=== PATIENT | female | born 1950 | race Caucasian/White ===

== ENCOUNTER 2022-10-09 15:40 | Inpatient (IN) | payer MEDICARE, SELFPAY ==
--- NOTE | 2022-10-09 15:41 | XRR_ITS ---
PROCEDURE INFORMATION: Exam: XR Right Hip Exam date and time: 10/09/2022 4:13 PM Age: 72 years old Clinical indication: Injury or trauma; Fall; Blunt trauma (contusions or hematomas); Right; Hip; Additional info: Pain after fall TECHNIQUE: Imaging protocol: Radiologic exam of the right hip. Views: 1 view hip with pelvis when performed. COMPARISON: No relevant prior studies available. FINDINGS: Bones/joints: Angulated distal femoral neck fracture on the right. Femoral head aligned acetabulum. 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 Soft tissues: Unremarkable. XR/XR hip RT 2-3V wo/w pel* [id number] IMPRESSION: Acute right femoral neck fracture.
[2022-10-09 15:43] VITALS: BP 122/79; PULSE 109; RESP 22; TEMP 36.9; O2SAT 91
--- NOTE | 2022-10-09 15:44 | ED_ITS ---
HPI - Fall General: Chief Complaint: Extremity Injury, Lower Stated Complaint: FALL/ POSSIBLE BROKEN HIP Time Seen by Provider: 10/09/22 15:41 Source: patient Mode of arrival: EMS History of Present Illness: 72-year-old female presents emergency room via EMS complaining of fall. It is uncertain at 1 point she told me she fell today and another time she fell says she fell yesterday her clothes are clean and dry. I suspect she did fall today. She denies any loss of consciousness she is extremely agoraphobic and is highly anxious. Patient has obvious shortening and external rotation of the right leg. She fell after tingling her feet up and some animals that live in her home and stumbling complaint: fall Onset (ago): hour(s) Fall from: standing Place fall occurred: home Loss of consciousness: Unsure Prolonged down time: unclear Context: tripped/slipped Associated symptoms-after fall: Denies abdominal pain, chest pain, confusion, difficulty walking, headache(s), hematuria, lightheadedness, neck pain, numbness, short of breath, vertigo or weakness Review of Systems Const: Denies: fever(s), chills, body aches, change in appetite, fatigue or malaise ENMT: Denies: throat pain, ear or mastoid pain, nasal discharge or nasal congestion Card: Denies: chest pain or lightheadedness Resp: Denies: dyspnea, productive cough or non-productive cough GI: Denies: abdominal pain, nausea or vomiting : Denies: hematuria Musc: Denies: neck pain Skin/Breast: Denies: rash or pruritus Neuro: Denies: headache(s), difficulty walking, vertigo or confusion PFSH ED PFSH: Medical History No pertinent past medical history Surgical History No pertinent past surgical history Family History Denies family history of CAD (coronary artery disease) Social History Smoking and tobacco status: current every day smoker Alcohol intake: never Household members: significant other Physical Exam Const: GENERAL APPEARANCE: cooperative and comfortable ORIENTATION/CONSCIOUSNESS: Yes awake HENMT: COMMON NORMALS: normocephalic, atraumatic and hearing grossly normal bilaterally HEAD & SCALP: normocephalic and atraumatic Resp: COMMON NORMALS: normal respiratory effort, No retractions, No use of accessory muscles and clear to auscultation bilaterally AUSCULTATION: clear to auscultation bilaterally Cardio: COMMON NORMALS: regular rate, regular rhythm and No murmurs present (Cardio) RATE: regular rate RHYTHM: regular rhythm GI: COMMON NORMALS: Soft to palpation and No hepatosplenomegaly present AUSCULTATION: Yes normoactive bowel sounds PALPATION: Yes Soft to palpation, No Tenderness to palpation present (GI), No Guarding due to palpation present (GI) and Yes No hepatosplenomegaly present Extremity: COMMON NORMALS: normal to inspection, capillary refill normal, no clubbing, cyanosis or edema, no calf tenderness and no pedal edema Skin: COMMON NORMALS: no rashes or lesions noted GENERAL SKIN EXAM: no rashes or lesions noted Course 2 Vital Signs: Vital signs: Vital Signs Temperature 97.4 F L 10/10/22 11:19 Pulse Rate 87 10/10/22 11:19 Respiratory Rate 16 10/10/22 11:42 Blood Pressure 140/72 10/10/22 11:19 Pulse Oximetry 95 10/10/22 11:42 Oxygen Delivery Me thod 10/10/22 04:00 Oxygen Flow Rate 1 10/10/22 04:00 MDM - Fall Medical Decision Making Appear to be an intertrochanteric fracture radiology read is a femoral neck fracture is mildly displaced. Admit to hospitalist for medical work-up patient has not seen a doctor in some time discussed Dr. bradley and consultation for orthopedics. Medical Records I reviewed the patient's medical records. Lab Data I reviewed the patient's lab results. 10/10/22 06:06 10/10/22 06:06 Radiology Impressions Hip/Pelvis X-Ray 10/09/22 15:41 IMPRESSION: Acute right femoral neck fracture. Chest X-Ray 10/09/22 16:19 IMPRESSION: 1. No acute chest abnormality identified. 2. Severe emphysema. 3. Suboptimal image of the lungs. Technical limitations. Hip CT 10/10/22 06:25 IMPRESSION: 1. Comminuted impacted RIGHT femoral neck fracture which extends subtrochanteric. 2. Avulsion of the lesser and greater trochanters. Laboratory Results WBC 20.0 10^3/uL (4.0-10.0) H 10/09/22 16:37 RBC 3.22 10^6/uL (4.1-5.3) L 10/09/22 16:37 Hgb 11.4 g/dL (11.5-15.3) L 10/09/22 16:37 Hct 32.8 % (37.0-47.0) L 10/09/22 16:37 MCV 101.9 fl (81-99) H 10/09/22 16:37 MCH 35.4 pg (28.0-34.0) H 10/09/22 16:37 MCHC 34.8 g/dL (30.0-36.0) 10/09/22 16:37 RDW 14.4 % (12.1-15.1) 10/09/22 16:37 Plt Count 237 10^3/cmm (130-400) 10/09/22 16:37 MPV 9.4 fL (7.4-10.4) 10/09/22 16:37 Neut % (Auto) 88.1 % 10/09/22 16:37 Lymph % (Auto) 4.2 % 10/09/22 16:37 [place] % (Auto) 6.9 % 10/09/22 16:37 Eos % (Auto) 0.0 % 10/09/22 16:37 Baso % (Auto) 0.2 % 10/09/22 16:37 Neut # (Auto) 17.64 10^3/uL (1.8-7.7) H 10/09/22 16:37 Lymph # (Auto) 0.8 10^3/uL (0.8-4.8) 10/09/22 16:37 [place] # (Auto) 1.4 10^3/uL (0.2-0.9) H 10/09/22 16:37 Eos # (Auto) 0.0 10^3/uL (0.0-0.8) 10/09/22 16:37 Baso # (Auto) 0.0 10^3/uL (0.0-0.1) 10/09/22 16:37 Nucleated RBC % (auto) 0.1 % 10/09/22 16:37 Nucleated RBCs # 0.0 /100WBC 10/09/22 16:37 PT 13.30 SECONDS (12.1-14.9) 10/09/22 16:37 INR 0.98 (0.8-1.2) 10/09/22 16:37 APTT 23.7 SECONDS (23.9-36.7) L 10/09/22 16:37 Sodium 137 mmol/L (136-145) 10/09/22 16:37 Potassium 4.5 mmol/L (3.5-5.1) 10/09/22 16:37 Chloride 98 mmol/L (98-107) 10/09/22 16:37 Carbon Dioxide 19 mmol/L (22-29) L 10/09/22 16:37 Anion Gap 24.5 (5-19) H 10/09/22 16:37 BUN 34 mg/dL (8-23) H 10/09/22 16:37 Creatinine 1.0 mg/dL (0.5-0.9) H 10/09/22 16:37 GFR Calculation 54.8 mL/min (90-130) L 10/09/22 16:37 Glucose 155 mg/dL (65-115) H 10/09/22 16:37 Calculated Osmolality 295 mOsm/kg (285-295) 10/09/22 16:37 Lactic Acid 1.8 mmol/L (0.5-2.2) 10/09/22 17:45 Calcium 8.7 mg/dL (8.5-10.5) 10/09/22 16:37 Total Bilirubin 1.3 mg/dL (0.15-1.2) H 10/09/22 16:37 AST 37 U/L (0-32) H 10/09/22 16:37 ALT 15 U/L (0-33) 10/09/22 16:37 Alkaline Phosphatase 116 U/L (35-105) H 10/09/22 16:37 Creatine Kinase 982 U/L (26-192) H* 10/09/22 16:37 Total Protein 7.2 g/dL (6.6-8.7) 10/09/22 16:37 Albumin 4.0 g/dL (3.5-5.2) 10/09/22 16:37 Globulin 3.2 g/dL (1.3-4.6) 10/09/22 16:37 Procalcitonin 0.23 ng/mL (0-0.5) 10/09/22 17:45 Urine Color Yellow (Yellow) 10/09/22 17:11 Urine Appearance Clear (CLEAR) 10/09/22 17:11 Urine pH 5 (5-7) 10/09/22 17:11 Ur Specific Roy 1.020 (1.005-1.030) 10/09/22 17:11 Urine Protein Trace (Negative) 10/09/22 17:11 Urine Glucose (UA) Norm (Normal) 10/09/22 17:11 Urine Ketones 1+ (Negative) H 10/09/22 17:11 Urine Blood Neg (Negative) 10/09/22 17:11 Urine Nitrate Negative (Negative) 10/09/22 17:11 Urine Bilirubin Neg (Negative) 10/09/22 17:11 Urine Urobilinogen Neg mg/dL (Negative) 10/09/22 17:11 Ur Leukocyte Esterase Negative (Negative) 10/09/22 17:11 Urine RBC None /hpf (0-2) 10/09/22 17:11 Urine WBC None /hpf (0-5) 10/09/22 17:11 Ur Squamous Epith Cells None /hpf (0-5) 10/09/22 17:11 Amorphous Sediment Not Reportable 10/09/22 17:11 Urine Bacteria Trace /hpf (NONE) 10/09/22 17:11 Discharge Plan Discharge Patient Disposition: Admitted As Inpatient Admit Provider: Rachelle Jordan Clinical Impression: Hip fracture, Anxiety, Leukocytosis, Intravascular volume depletion Condition: Stable Coding Level of Care Code ED Formula Room Worker for Emre Ham
--- NOTE | 2022-10-09 16:19 | XRR_ITS ---
PROCEDURE INFORMATION: Exam: XR Chest Exam date and time: 10/09/2022 4:22 PM Age: 72 years old Clinical indication: Injury or trauma; Fall; Blunt trauma (contusions or hematomas); Additional info: Dyspnea/cough TECHNIQUE: Imaging protocol: Radiologic exam of the chest. Views: 1 view. COMPARISON: No relevant prior studies available. FINDINGS: Lungs: Severe emphysema. Hyperinflation. No consolidation. Portions of the lungs are nondiagnostic in evaluation, distorted by artifact from overexposure of the film. Pleural spaces: Unremarkable. No pleural effusion. No pneumothorax. Heart/Mediastinum: Unremarkable. No cardiomegaly. Bones/joints: Unremarkable. XR/XR chest 1V portable [id number] IMPRESSION: 1. No acute chest abnormality identified. 2. Severe emphysema. 3. Suboptimal image of the lungs. Technical limitations.
--- NOTE | 2022-10-09 16:19 | ECG_ITS ---
[facility] Test Date: 2022-10-09 Pat Name: Lily Davies Department: Room: Gender: Female Junior Systems Engineer: : 1950 Requested By: Daron Mckeon Order Number: [id number] Reading MD: MARIA EUGENIA CASTILLO Measurements Intervals Bynum Rate: 101 P: 80 WA: 116 QRS: 83 QRSD: 81 T: 74 QT: 344 QTc: 447 Interpretive Statements SINUS TACHYCARDIA WITH SHORT WA INTERVAL POSSIBLE LEFT ATRIAL ENLARGEMENT [-0.1mV P-WAVE IN V1/V2] POSSIBLE RIGHT VENTRICULAR CONDUCTION DELAY [RSR (QR) IN V1/V2] NONSPECIFIC ST & T-WAVE ABNORMALITY ABNORMAL RHYTHM ECG No previous ECG available for comparison Electronically Signed On 10-11-2022 23:39:17 CDT by MARIA EUGENIA CASTILLO [email or web address]
[2022-10-09] MEDS: ondansetron 2 mg/ML SDV 2 mL 4 MG IVP (16:42)
[2022-10-09] MEDS: morphine 4 mg/mL SDV 1 mL IVP (16:42)
[2022-10-09 16:45] LABS: Basophils % 0.2 %; Hematocrit 32.8 % (37.0-47.0); Hemoglobin 11.4 g/dL (11.5-15.3); Lymphocytes # 0.8 10^3/uL (0.8-4.8); Lymphocytes % 4.2 %; Mean Corpuscular HGB Conc 34.8 g/dL (30.0-36.0); Mean Corpuscular Hemoglobin 35.4 pg (28.0-34.0); Mean Corpuscular Volume 101.9 fl (81-99); Mean Platelet Volume 9.4 fL (7.4-10.4); Monocytes # 1.4 10^3/uL (0.2-0.9); Monocytes % 6.9 %; Neutrophils # 17.64 10^3/uL (1.8-7.7); Neutrophils % 88.1 %; Nucleated Red Blood Cells % 0.1 %; Platelet Count 237 10^3/cmm (130-400); Red Blood Count 3.22 10^6/uL (4.1-5.3); Red Cell Distribution Width 14.4 % (12.1-15.1)
[2022-10-09 17:12] LABS: INR 0.98 (0.8-1.2); Partial Thromboplastin Time 23.7 SECONDS (23.9-36.7)
[2022-10-09 17:13] LABS: Alanine Aminotransferase 15 U/L (0-33); Alkaline Phosphatase 116 U/L (35-105); Anion Gap 24.5 (5-19); Aspartate Amino Transferase 37 U/L (0-32); Blood Urea Nitrogen 34 mg/dL (8-23); Calcium 8.7 mg/dL (8.5-10.5); Carbon Dioxide 19 mmol/L (22-29); Chloride 98 mmol/L (98-107); Globulin 3.2 g/dL (1.3-4.6); Glomerular Filtration Rate 54.8 mL/min (90-130); Glucose 155 mg/dL (65-115); Osmolality Calculated 295 mOsm/kg (285-295); Potassium 4.5 mmol/L (3.5-5.1); Sodium 137 mmol/L (136-145); Total Bilirubin 1.3 mg/dL (0.15-1.2); Total Protein 7.2 g/dL (6.6-8.7)
[2022-10-09 17:16] LABS: Creatine Phosphokinase 982 U/L (26-192)
[2022-10-09] MEDS: pantoprazole 40 mg SDV IVP (18:23)
[2022-10-09] MEDS: heparin 5,000 unit/mL INJ 1 mL 5000 UNIT SUBCUT (18:23)
[2022-10-09 18:25] LABS: Lactic Sepsis W/Reflex 1.8 mmol/L (0.5-2.2)
[2022-10-09 18:35] LABS: Procalcitonin 0.23 ng/mL (0-0.5)
[2022-10-09 18:42] VITALS: BP 135/75; PULSE 78; RESP 18; O2SAT 93
--- NOTE | 2022-10-09 18:50 | P.HP_ITS ---
Providers/Chief Complaint Admitting Physician: Rachelle Jordan MD Chief Complaint: FALL/ POSSIBLE BROKEN HIP History of Present Illness Lily Davies is a 72 year old female who sustained a fall when she tripped over over her cats and dogs at home. She is denying chest pain, syncope, seizure- like activity. She is denying any past medical history of surgical significant history. Her only medications are anxiolytics. In the ER she has been diagnosed with right hip fracture Abnormal bilirubin noted She smokes 1 pack/week Clinically looks dehydrated Very anxious Significant leukocytosis I will request UA, Hinson catheter has been placed Procalcitonin unremarkable She is afebrile Review of Systems Const: Reports: fatigue; Denies: fever(s) Eyes: Denies: change in vision ENMT: Denies: throat pain Card: Denies: chest pain Resp: Denies: dyspnea GI: Denies: abdominal pain : Denies: flank pain Musc: Reports: extremity pain; Denies: neck pain Skin/Breast: Denies: rash Neuro: Denies: headache(s) Psych: Reports: anxiety Endo: Denies: polyuria Miquel/Lymph: Denies: easy bruising All/Imm: Denies: urticaria Medications/Allergies Home Medications Medication Instructions Recorded Confirmed Last Taken Type naproxen 500 mg tablet 500 mg PO DAILY PRN Pain 10/09/22 10/09/22 Unknown History sulindac 200 mg tablet 100 mg PO BID 10/09/22 10/09/22 Unknown History zolpidem 10 mg tablet (Ambien) 5 mg PO BEDTIME 10/09/22 10/09/22 Unknown History Allergies Allergy/AdvReac Type Severity Reaction Status Date / Time Unable to Assess Allergy Unverified 10/09/22 17:25 PFSH Acute PFSH: Medical History (Updated 10/09/22 @ 18:52 by Bulmaro Levi MD) No pertinent past medical history Surgical History (Updated 10/09/22 @ 18:52 by Bulmaro Levi MD) No pertinent past surgical history Family History (Updated 10/09/22 @ 18:53 by Bulmaro Levi MD) Denies family history of CAD (coronary artery disease) Social History (Updated 10/09/22 @ 18:53 by Bulmaro Levi MD) Smoking and tobacco status: current every day smoker Alcohol intake: never Household members: significant other Vitals/I&O/Wt Last Vital Signs Temp 98.4 F 10/09/22 15:43 Pulse 78 10/09/22 18:42 Resp 18 10/09/22 18:42 BP 135/75 10/09/22 18:42 Pulse Ox 93 10/09/22 18:42 O2 Del Method 10/09/22 18:42 Physical Exam Narrative: Patient is very anxious Laying supine Complaining of leg pain Euvolemic dehydrated Currently on room air Anxious appearing Hypertensive Doing well on room air no active chest pain or shortness of breath Hinson catheter in place Urinary Catheter Management: Hinson: Cath Placed During This Visit: yes Urinary Catheter Date of Insertion: 10/09/22 Urinary Catheter Time of Insertion: : Data 10/09/22 16:37 10/09/22 16:37 Micro: Microbiology 10/09/22 17:45 Blood Culture - Preliminary Blood SPECIMEN COLLECTED 10/09/22 17:40 Blood Culture - Preliminary Blood SPECIMEN COLLECTED A&P Assessment and plan (1) Anxiety: (2) Hip fracture: Plan Mechanical fall Right hip fracture Risk for avascular necrosis Dr. Caldwell consulted N.p.o. Hold DVT anticoagulating agent prophylaxis for today until surgical intervention Then she will need Lovenox Clinically looks dehydrated Continue IV fluids Lives with her significant other at home Full code DVT prophylaxis: SCDs Currently doing well on room air Will need physical therapy that we will decide her disposition Home versus SNF Very anxious appearing With using dilators along morphine Significant leukocytosis no active signs of infection we will request UA, chest x-ray unremarkable could be leukemoid reaction to stress Attestations Medical Necessity Statement*: Continue medical management anticipating more than 2 midnights Diagnoses Anxiety F41.9 Hip fracture S72.009A
[2022-10-09 19:00] VITALS: BP 152/96; PULSE 126; O2SAT 96
[2022-10-09 19:38] LABS: Add Urine Microscopic? YES; Bilirubin Urine Neg (Negative); Blood Urine Neg (Negative); Glucose Urine UA Norm (Normal); Ketones Urine 1+ (Negative); Leukocyte Esterase Urine Negative (Negative); Nitrate Urine Negative (Negative); Protein Urine Trace (Negative); Urine Appearance Clear (CLEAR); Urine Color Yellow (Yellow); Urobilinogen Urine Neg (Negative); pH Urine 5 (5-7)
[2022-10-09 19:39] LABS: Add Urine Culture? No; Bacteria Urine TRACE /hpf
--- NOTE | 2022-10-09 19:44 | PC.NURSE ---
Report handoff given to me by SHIRA Cortez.
[2022-10-09 20:00] VITALS: BP 96/56; PULSE 106; RESP 31; TEMP 36.8; O2SAT 91
[2022-10-09 21:30] VITALS: O2SAT 96
[2022-10-09] MEDS: sodium chloride 0.9% 1,000 ML 75 ML IV (22:46)
[2022-10-09] MEDS: zolpidem 5 mg Tablet PO (22:46)
[2022-10-09] MEDS: acetaminophen 325 mg Tablet 650 MG PO (23:50)
[2022-10-09] MEDS: lidocaine 5% Patch 1 PATCH TOPICAL (23:52)
[2022-10-10] VITALS (17 sets, daily range): BP systolic 103–141; BP diastolic 50–85; PULSE 77–96; RESP 14–18; TEMP 36.1–37.3; O2SAT 91–99
--- NOTE | 2022-10-10 | XR_ITS ---
WS: [id number] XR hip RT 1V wo/w pel [id number] REASON FOR EXAM: OR PICS FINDINGS: Short intramedullary chris and large femoral nail fixation of intertrochanteric fracture with significa nt displacement of the lesser trochanter. Fracture fragments and surgical appliances are in proper position and alignment. XR/XR hip RT 2-3V wo/w pel* [id number] IMPRESSION: Fracture with fixation without abnormality.
[2022-10-10] MEDS: HYDROcodone-acetaminophen 5-325 mg Tablet 1 TAB PO ×3 (01:33→21:14)
[2022-10-10 06:24] LABS: Basophils # 0.1 10^3/uL (0.0-0.1); Basophils % 0.3 %; Eosinophils % 0.1 %; Hematocrit 34.6 % (37.0-47.0); Hemoglobin 11.3 g/dL (11.5-15.3); Lymphocytes # 1.8 10^3/uL (0.8-4.8); Lymphocytes % 9.7 %; Mean Corpuscular HGB Conc 32.7 g/dL (30.0-36.0); Mean Corpuscular Hemoglobin 34.3 pg (28.0-34.0); Mean Corpuscular Volume 105.2 fl (81-99); Mean Platelet Volume 9.9 fL (7.4-10.4); Monocytes # 1.7 10^3/uL (0.2-0.9); Monocytes % 8.9 %; Neutrophils # 14.96 10^3/uL (1.8-7.7); Neutrophils % 80.5 %; Nucleated Red Blood Cells % 0 %; Platelet Count 244 10^3/cmm (130-400); Red Blood Count 3.29 10^6/uL (4.1-5.3); Red Cell Distribution Width 14.7 % (12.1-15.1); White Blood Count 18.6 10^3/uL (4.0-10.0)
--- NOTE | 2022-10-10 06:25 | CT_ITS ---
WS: [id number] CT RIGHT HIP, NONCONTRAST, 3-D. HISTORY: Fractured right hip Technique: All CT scans at [facility] use at least one of these dose optimization techniques: automated exposure control; mA and/or kV adjustment per patient size (includes targeted exams where dose is matched to clinical indication); or iterative reconstruction. DLP: 251.85 mGy.cm COMPARISON: 10/09/2022 Acute comminuted, impacted fracture involving the RIGHT femoral neck. Foreshortening and superior imp action of the distal fragment. There are multiple osseous fragments. Avulsion of the lesser and great er trochanters. Fracture line extends subtrochanteric. Moderate osteophytic ridging around the humeral head. No displacement from the hip joint. No symphysi s pubis fracture. Moderate soft tissue edema surrounding the RIGHT hip fracture. CT/CT hip RT wo con* [id number] IMPRESSION: 1. Comminuted impacted RIGHT femoral neck fracture which extends subtrochanter ic. 2. Avulsion of the lesser and greater trochanters.
--- NOTE | 2022-10-10 06:27 | P.CONIM_ITS ---
Providers/Reason For Consult Consulting Physician/Specialty*: Orthopedics Reason for Consult*: Right hip pain Attending Physician: Jevon Burgess MD History of Present Illness History of Present Illness Lily Davies is a 72 year old female who sustained a fall on 10/09/2022. She states she tripped over her pets causing her to fall felt immediate pain in the right hip. She presented [facility] where x-rays confirmed a right hip fractu re she was then admitted for more definitive management. Orthopedics was consulted she was evaluated in room 266 bed 1 with no family present continuing to complain of right hip pain. Patient has been confused through the night. She denies any neck or back pain reports all right hip pain. Any movement of the right leg causes her pain to be much greater. She ranks it as 8 out of 10 on the pain scale with movement. Rest gives her some temporary relief but was reporting muscle spasms. Reports sharp stabbing pain localized to the right hip with movement. She reports a nicotine history with smoking occasionally for a number of years. Reports alcohol use socially. Denies any loss of conscious in the fall. Reports that the only surgery she has had is cosmetic with breast augmentation. An extensive review of the patient's past medical history, surgical history, allergies, medications, family history, social history, and review of systems was completed Review of Systems Const: Reports: fatigue; Denies: fever(s) Eyes: Denies: change in vision ENMT: Denies: throat pain Card: Denies: chest pain Resp: Denies: dyspnea GI: Denies: abdominal pain : Denies: flank pain Musc: Reports: extremity pain; Denies: neck pain Skin/Breast: Denies: rash Neuro: Denies: headache(s) Psych: Reports: anxiety Endo: Denies: polyuria Miquel/Lymph: Denies: easy bruising All/Imm: Denies: urticaria Medications/Allergies Home Medications Medication Instructions Recorded Confirmed Last Taken Type naproxen 500 mg tablet 500 mg PO DAILY PRN Pain 10/09/22 10/09/22 Unknown History sulindac 200 mg tablet 100 mg PO BID 10/09/22 10/09/22 Unknown History zolpidem 10 mg tablet (Ambien) 5 mg PO BEDTIME 10/09/22 10/09/22 Unknown History Allergies Allergy/AdvReac Type Severity Reaction Status Date / Time Unable to Assess Allergy Unverified 10/09/22 17:25 Current Medications Generic Name Dose Route Start Last Admin Trade Name Freq PRN Reason Stop Dose Admin Acetaminophen 650 mg 10/09/22 16:46 10/09/22 23:50 Acetaminophen 325 Mg Tablet PO 650 mg Q6H PRN Administration Mild/Mod Pain Or Temp >/= 101 Hydrocodone Bitart/Acetaminophen 1 tab 10/10/22 01:11 10/10/22 01:33 Hydrocodone-Acetaminophen 5-325 Mg Tablet PO 1 tab Q6H PRN Administration MODERATE PAIN Heparin Sodium (Porcine) 5,000 unit 10/09/22 17:00 10/09/22 18:23 Heparin 5,000 Unit/Ml Inj 1 Ml SUBCUT 5,000 unit Q12H ISHAN Administration Sodium Chloride 1,000 mls @ 75 mls/hr 10/09/22 17:00 10/09/22 22:46 Sodium Chloride 0.9% IV 75 mls/hr .[id number] ISHAN Administration Lidocaine 1 patch 10/09/22 23:45 10/09/22 23:52 Lidocaine 5% Patch TOPICAL 1 patch [id number] ISHAN Administration Pantoprazole Sodium 40 mg 10/09/22 17:00 10/09/22 18:23 Pantoprazole 40 Mg Sdv IVP 40 mg Q24H ISHAN Administration Zolpidem Tartrate 5 mg 10/09/22 21:06 10/09/22 22:46 Zolpidem 5 Mg Tablet PO 5 mg BEDTIME ISHAN Administration PFSH Acute PFSH: Medical History (Updated 10/09/22 @ 18:52 by Bulmaro Levi MD) No pertinent past medical history Surgical History (Updated 10/09/22 @ 18:52 by Bulmaro Levi MD) No pertinent past surgical history Family History (Updated 10/09/22 @ 18:53 by Bulmaro Levi MD) Denies family history of CAD (coronary artery disease) Social History (Updated 10/09/22 @ 18:53 by Bulmaro Levi MD) Smoking and tobacco status: current every day smoker Alcohol intake: never Household members: significant other Vitals/I&O/Wt Last Vital Signs Temp 99.2 F 10/10/22 04:00 Pulse 83 10/10/22 05:38 Resp 14 10/10/22 04:00 BP 116/67 10/10/22 04:00 Pulse Ox 92 10/10/22 04:00 O2 Del Method 10/10/22 04:00 O2 Flow Rate 1 10/10/22 04:00 10/09/22 10/09/22 10/10/22 14:59 22:59 06:59 Intake Total 480 / 480 Output Total 400 / 400 Balance 80 / 80 Weight last 48 hrs Weight 96 lb Physical Exam Narrative: Patient is alert moderate acute distress with right hip pain. Any movement of the right lower extremity causes increased leg pain. She has palpable pain over the right hip. She has positive logroll on the right negative on the left. Skin is clear warm femoral good cap refill she wiggles all digits they are warm to the touch. Calves are supple dorsalis pedis and posterior tibial pulses are weak but palpable. She has no palpable pain in either knee tibial or ankle regions. She has no palpable pain in the lumbar thoracic or cervical spine full range of motion of both upper extremities at the shoulders elbows and wrist. Hands warm good cap refill radial pulses are palpable. HENMT: COMMON NORMALS: normocephalic and atraumatic HEAD & SCALP: normocephalic and atraumatic Resp: COMMON NORMALS: normal respiratory effort Cardio: COMMON NORMALS: regular rate and regular rhythm RATE: regular rate RHYTHM: regular rhythm GI: COMMON NORMALS: Soft to palpation and non-tender PALPATION: Yes Soft to palpation : COMMON NORMALS: Yes no CVA tenderness BLADDER/KIDNEY EXAM: Yes no CVA tenderness Back/Pelvis: COMMON NORMALS: no CVA tenderness Psych: COMMON NORMALS: mental status grossly normal and cooperative Urinary Catheter Management: Hinson: Cath Placed During This Visit: yes Reason for Continuing Indwelling Catheter: Perioperative Use in Selected Surgeries Urinary Catheter Date of Insertion: 10/09/22 Urinary Catheter Time of Insertion: :23 Data 10/09/22 16:37 10/09/22 16:37 Micro: Microbiology 10/09/22 17:45 Blood Culture - Preliminary Blood SPECIMEN COLLECTED 10/09/22 17:40 Blood Culture - Preliminary Blood SPECIMEN COLLECTED A&P Assessment and plan (1) Hip fracture: After reviewing the radiographs difficult to discern the type of hip fracture recommend a CT scan of the right hip. Keep her n.p.o. for probable ORIF today. Following the CT scan we will discuss more with the patient the nature of her fracture and recommended fixation. Patient understands. Discussed this at length with Dr. Fabian agrees above-stated plan. More than 50% of the time spent with the patient today involved coordination of care, counseling and discussion of conservative versus surgical treatment options. Total amount of time spent with the patient was 31 minutes. (2) Anxiety: Coding Level of Care Code Acute Code for [facility] Diagnoses Hip fracture S72.009A Anxiety F41.9 Time Spent (min) 31
[2022-10-10 06:49] LABS: Alanine Aminotransferase 17 U/L (0-33); Alkaline Phosphatase 93 U/L (35-105); Anion Gap 24.6 (5-19); Aspartate Amino Transferase 46 U/L (0-32); Blood Urea Nitrogen 46 mg/dL (8-23); Calcium 8.8 mg/dL (8.5-10.5); Carbon Dioxide 21 mmol/L (22-29); Chloride 101 mmol/L (98-107); Globulin 3.7 g/dL (1.3-4.6); Glomerular Filtration Rate 31.9 mL/min (90-130); Glucose 127 mg/dL (65-115); Magnesium 1.8 mg/dL (1.7-2.3); Osmolality Calculated 307 mOsm/kg (285-295); Potassium 4.6 mmol/L (3.5-5.1); Sodium 142 mmol/L (136-145); Total Bilirubin 0.8 mg/dL (0.15-1.2); Total Protein 7.7 g/dL (6.6-8.7)
[2022-10-10] MEDS: sodium chloride 0.9% 1,000 ML 30 ML IV (11:41)
[2022-10-10] MEDS: HYDROmorphone 1 mg/mL INJ 1 mL 0.5 MG IVP (11:42)
--- NOTE | 2022-10-10 11:50 | P.PN_ITS ---
Subjective Subjective: missed patient this AM. brought down to surgery Jacob pt after surgery. tolerated well. per note had Right hip nail for IT fracture. States her hip is feeling better. anxious because of all the noise. looking for her iphone, wanting vasasline for lips Vitals/I&O/Wt Last Vital Signs Temp 97.4 F L 10/10/22 11:19 Pulse 87 10/10/22 11:19 Resp 16 10/10/22 11:42 BP 140/72 10/10/22 11:19 Pulse Ox 95 10/10/22 11:42 O2 Del Method 10/10/22 04:00 O2 Flow Rate 1 10/10/22 04:00 10/09/22 10/10/22 10/10/22 22:59 06:59 14:59 Intake Total 480 / 480 Output Total 400 / 400 Balance 80 / 80 Weight last 48 hrs Weight 96 lb Physical Exam Narrative: General: AOx3, anxious, very thin and frail psych: appropriate mood and affect. Head: atraumatic, normocephalic, no mass/lesions Eyes: conjunctiva clear w/o exudate or hemorrhage. non-icteric, EOM intact, PERRLA. no signs of nystagmus Nose: nasal mucosa pink, septum midline Oropharynx: poor dentition, pink moist mucosa, non-deviated tongue, no buccal nodules/lesions. no pharyngeal exudate Neck: FROM, no lymphadenopathy, no tracheal deviation, non tender, thyroid gland normal w/o mass. supple Chest: atraumatic, symmetrical CVD: RRR, normal S1 and S2, no M/R/G. 2+ pulse x 4 extremities, no JVD, no carotid bruit. Lungs: clear lung sounds in all zamora, no rhonchi, wheezing, rales. Abdomen: NT, ND, soft, NABS. No hepatosplenomegaly, no mass. umbilicus midline w/o herniation : chaudhry in place Rectal: not done on todays examination Spine: no visible deformities, FROM, 5/5 strength, ttp lumbar spine (chronic) Extremities: FROM and 5/5 strength in BUE and LLE. -R hip: limited ROM, bandage clean and w/o bleeding. -RLE: able to wiggle toes and move foot. NVI Neuro: CNII-XII grossly intact. No atrophy, weakness, tremors or clonus.? 2+ DTR, no sensory abnormalities. Skin:? no rash, vesicles, lesions. Urinary Catheter Management: Chaudhry: Cath Placed During This Visit: no Data 10/10/22 06:06 10/10/22 06:06 Micro: Microbiology 10/09/22 17:45 Blood Culture - Preliminary Blood SPECIMEN COLLECTED 10/09/22 17:40 Blood Culture - Preliminary Blood SPECIMEN COLLECTED Other data: Lily Davies is a 72 year old female who sustained a fall when she tripped over over her cats and dogs at home.? She is denying chest pain, syncope, seizure-l micheal activity.? She is denying any past medical history of surgical significant history.? Her only medications are anxiolytics. In the ER she has been diagnosed with right hip fracture Abnormal bilirubin noted She smokes 1 pack/week Clinically looks dehydrated Very anxious Significant leukocytosis I will request UA, Chaudhry catheter has been placed Procalcitonin unremarkable She is afebrile A&P Assessment and plan (1) Hip fracture: fracture s/p mechainical fall seen by Ortho and had surgery this afternoon by Dr. Caldwell. Right hip nail for IT fracture advance diet as tolerated. NPO SCD's, post op will need lovenox will need post op PT (2) Anxiety: haldol PRN likely needs to be started (3) Intravascular volume depletion: STOP fluids, had on IV 75cc/hr prior to surgery tolerating PO will advance diet (4) Leukocytosis: Significant leukocytosis no active signs of infection we will request UA, chest x-ray unremarkable could be leukemoid reaction to stress Plan Full code Attestations Medical Necessity Statement*: s/p hip fracture with surgical correction Coding Level of Care Code 83811 Diagnoses Hip fracture S72.009A Anxiety F41.9 Intravascular volume depletion E86.1 Leukocytosis D72.829
--- NOTE | 2022-10-10 12:26 | W.PM.OPSUD ---
Surgery/Procedure H&P Update DATE OF PROCEDURE: October 10, 2022 DATE H&P PERFORMED: 10/10/22 H&P UPDATE INFORMATION: I have reviewed H&P completed within last 30 days, I have examined patient prior to procedure and No changes to prior documentation PLANNED PROCEDURE: Operation Date: 10/10/22 12:35 Proposed Procedures p Trochanteric Femoral Nail(Right) - Emiliano Caldwell DO
--- NOTE | 2022-10-10 12:52 | P.ANESASSM_ITS ---
Pre-Anesthetic Assessment Height/Weight: Weight 43.545 kg Temp Pulse Resp BP Pulse Ox O2 Del Method O2 Flow Rate 97.4 F L 87 16 140/72 95 1 10/10/22 11:19 10/10/22 11:19 10/10/22 11:42 10/10/22 11:19 10/10/22 11:42 10/10/22 04:00 10/10/22 04:00 Operation Date: 10/10/22 12:35 Proposed Procedures p Trochanteric Femoral Nail(Right) - Emiliano H Paulette, DO Familial anesthetic complications: none Was Beta Analia taken within 24 hours: N/A Was Clonidine taken within 24 hours: N/A Social Tobacco and No alcohol Exam alert, oriented x 3 and regular rate & rhythm Airway Submandibular: within normal limits Cervical ROM: within normal limits Mallampati: Class II Dentition: chipped Pulmonary Chronic Obstructive Pulmonary Disease [facility] [place] Neuropsych Anxiety and Depression Anesthetic Plan ASA status: 2 Anesthesia: General Medications/Allergies Home Medications Medication Instructions Recorded Confirmed Last Taken Type naproxen 500 mg tablet 500 mg PO DAILY PRN Pain 10/09/22 10/09/22 Unknown History sulindac 200 mg tablet 100 mg PO BID 10/09/22 10/09/22 Unknown History zolpidem 10 mg tablet (Ambien) 5 mg PO BEDTIME 10/09/22 10/09/22 Unknown History Allergies Allergy/AdvReac Type Severity Reaction Status Date / Time No Known Allergies Allergy Verified 10/10/22 11:26 Current Medications Generic Name Dose Route Start Last Admin Trade Name Freq PRN Reason Stop Dose Admin Acetaminophen 650 mg 10/09/22 16:46 10/09/22 23:50 Acetaminophen 325 Mg Tablet PO 650 mg Q6H PRN Administration Mild/Mod Pain Or Temp >/= 101 Hydrocodone Bitart/Acetaminophen 1 tab 10/10/22 01:11 10/10/22 08:49 Hydrocodone-Acetaminophen 5-325 Mg Tablet PO 1 tab Q6H PRN Administration MODERATE PAIN Heparin Sodium (Porcine) 5,000 unit 10/09/22 17:00 10/09/22 18:23 Heparin 5,000 Unit/Ml Inj 1 Ml SUBCUT 5,000 unit Q12H ISHAN Administration Hydromorphone HCl 0.5 mg 10/10/22 11:29 10/10/22 11:42 Hydromorphone 1 Mg/Ml Inj 1 Ml IVP 0.5 mg ONCE PRN Administration For preop pain/anxiety Sodium Chloride 1,000 mls @ 75 mls/hr 10/09/22 17:00 10/09/22 22:46 Sodium Chloride 0.9% IV 75 mls/hr .[id number] ISHAN Administration Sodium Chloride 1,000 mls @ 30 mls/hr 10/10/22 11:15 10/10/22 11:41 Sodium Chloride 0.9% IV 10/11/22 11:14 30 mls/hr .Q24H ISHAN Administration Lidocaine 1 patch 10/09/22 23:45 10/09/22 23:52 Lidocaine 5% Patch TOPICAL 1 patch [id number] ISHAN Administration Pantoprazole Sodium 40 mg 10/09/22 17:00 10/09/22 18:23 Pantoprazole 40 Mg Sdv IVP 40 mg Q24H ISHAN Administration Zolpidem Tartrate 5 mg 10/09/22 21:06 10/09/22 22:46 Zolpidem 5 Mg Tablet PO 5 mg BEDTIME ISHAN Administration PFSH Anesthesia Medical History (Updated 10/10/22 @ 11:55 by Jevon Burgess MD) No pertinent past medical history Surgical History (Updated 10/09/22 @ 18:52 by Bulmaro Levi MD) No pertinent past surgical history Family History (Updated 10/09/22 @ 18:53 by Bulmaro Levi MD) Denies family history of CAD (coronary artery disease) Social History (Updated 10/09/22 @ 18:53 by Bulmaro Levi MD) Smoking and tobacco status: current every day smoker Alcohol intake: never Household members: significant other Data Anesthesia 10/10/22 06:06 10/10/22 06:06 Short CBC 10/09/22 10/10/22 Range/Units 16:37 06:06 WBC 20.0 H 18.6 H (4.0-10.0) 10^3/uL Hgb 11.4 L 11.3 L (11.5-15.3) g/dL Hct 32.8 L 34.6 L (37.0-47.0) % MCV 101.9 H 105.2 H (81-99) fl Plt Count 237 244 (130-400) 10^3/cmm Neut % (Auto) 88.1 80.5 % Neut # (Auto) 17.64 H 14.96 H (1.8-7.7) 10^3/uL BMP 10/09/22 10/10/22 16:37 06:06 Sodium 137 142 Potassium 4.5 4.6 Chloride 98 101 Carbon Dioxide 19 L 21 L BUN 34 H 46 H Creatinine 1.0 H 1.6 H Glucose 155 H 127 H Calcium 8.7 8.8 Cardiac Enzymes 10/09/22 Range/Units 16:37 Creatine Kinase 982 H* (26-192) U/L Liver Function 10/09/22 10/10/22 Range/Units 16:37 06:06 Total Bilirubin 1.3 H 0.8 (0.15-1.2) mg/dL AST 37 H 46 H (0-32) U/L ALT 15 17 (0-33) U/L Alkaline Phosphatase 116 H 93 (35-105) U/L Albumin 4.0 4.0 (3.5-5.2) g/dL Urine 10/09/22 Range/Units 17:11 Urine Color Yellow (Yellow) Urine Appearance Clear (CLEAR) Urine pH 5 (5-7) Ur Specific [place] 1.020 (1.005-1.030) Urine Protein Trace (Negative) Urine Glucose (UA) Norm (Normal) Urine Ketones 1+ H (Negative) Urine Nitrate Negative (Negative) Urine Bilirubin Neg (Negative) Ur Leukocyte Esterase Negative (Negative) Urine RBC None (0-2) /hpf Urine WBC None (0-5) /hpf Coags 10/09/22 16:37 PT 13.30 INR 0.98 APTT 23.7 L Microbiology 10/09/22 17:45 Blood Culture - Preliminary Blood SPECIMEN COLLECTED 10/09/22 17:40 Blood Culture - Preliminary Blood SPECIMEN COLLECTED Cardiac Studies: No Data to Display
[2022-10-10] MEDS: ceFAZolin 2,000 MG in sodium chloride 0.9% (plus) 50 ML 100 MG IV (12:59)
--- NOTE | 2022-10-10 13:48 | XR_ITS ---
WS: [id number] XR hip RT 1V wo/w pel [id number] REASON FOR EXAM: OR PICS FINDINGS: Short intramedullary chris and large femoral nail fixation of intertrochanteric fracture with significa nt displacement of the lesser trochanter. Fracture fragments and surgical appliances are in proper position and alignment.
--- NOTE | 2022-10-10 13:55 | P.OP_ITS ---
Operative Report Date of procedure: October 10, 2022 Pre-op diagnosis: right intertrochanteric hip fracture Post-op diagnosis: same Procedure done: 1. Right hip nail for IT fracture Surgeon: Emiliano Caldwell [employer]: Alexandru Gaffney Estimated blood loss (mL): 50 Procedure: 1. Right hip nail for IT fracture Patient brought the op suite after undergoing anesthesia was placed on the Varnell table. The right hip is locked in to the boot traction was applied internal rotation was applied and under C-arm guidance fracture was reduced once fracture was reduced and locked into position and then patient was prepped and draped normal sterile fashion. Skin incision was made at the top of the greater trochanter. The starting pin was inserted then a drill was used to open up the top of the femoral canal. Romel gamma nail was then inserted into the medullary canal through the tip of the greater trochanter. Next a pin was placed from the lateral side of the hip up into the center center position of the femoral head. This was confirmed on AP and lateral fluoroscopy. Then the hip was drilled 95 mm lag screw was placed and then the fracture was compressed. And then locked in position with the set screw and then had a half of back turn. Next the locking screw was placed through the nail. And then the attachment jig was removed and AP and lateral fluoroscopy ensure that the hardware and fracture were in good position. The hip nail looked to be in good position wounds were irrigated closed with Vicryl and brielle. Sterile dressings were applied patient was transferred to the PACU in stable condition.
--- NOTE | 2022-10-10 14:43 | ANE.PACU2 ---
Inpatient post-anesthesia follow up: Airway intact: Yes Vital signs: Temperature 97 F Pulse Rate 96 Respiratory Rate 18 Blood Pressure 141/85 Pulse Oximetry 97 Oxygen Delivery Me thod Room Air Oxygen Flow Rate 1 Fraction of Inspir ed Oxygen Hydration adequate: Yes Nausea and vomiting: No Pain level: 3 Mental status: Baseline
[2022-10-10] MEDS: ceFAZolin 1,000 MG in sodium chloride 0.9% (plus) 50 ML 100 MG IV ×2 (15:13→21:15)
[2022-10-10] MEDS: sodium chloride 0.9% 1,000 ML 75 ML IV (15:14)
--- NOTE | 2022-10-10 15:48 | PC.OT ---
OT Eval Held - Patient just released from surgery, eval held until tomorrow when patient is more appropriate.
[2022-10-10] MEDS: ALPRAZolam 0.5 mg Tablet 1 MG PO ×2 (16:19→21:19)
[2022-10-10] MEDS: morphine 4 mg/mL SDV 1 mL 2 MG IVP (16:20)
[2022-10-10] MEDS: pantoprazole 40 mg SDV IVP (18:48)
[2022-10-10] MEDS: enoxaparin 40 mg/0.4 mL Syringe SUBCUT (18:48)
[2022-10-10] MEDS: zolpidem 5 mg Tablet PO (21:14)
[2022-10-11] VITALS (9 sets, daily range): BP systolic 93–120; BP diastolic 57–72; PULSE 77–99; RESP 15–20; TEMP 36.1–36.6; O2SAT 88–97
[2022-10-11 04:25] LABS: Basophils % 0.1 %; Hematocrit 28.2 % (37.0-47.0); Hemoglobin 8.7 g/dL (11.5-15.3); Lymphocytes # 0.9 10^3/uL (0.8-4.8); Lymphocytes % 5.9 %; Mean Corpuscular HGB Conc 30.9 g/dL (30.0-36.0); Mean Corpuscular Hemoglobin 34.7 pg (28.0-34.0); Mean Corpuscular Volume 112.4 fl (81-99); Mean Platelet Volume 10.2 fL (7.4-10.4); Monocytes # 1.6 10^3/uL (0.2-0.9); Monocytes % 10.6 %; Neutrophils # 12.15 10^3/uL (1.8-7.7); Neutrophils % 82.5 %; Nucleated Red Blood Cells % 0 %; Platelet Count 187 10^3/cmm (130-400); Red Blood Count 2.51 10^6/uL (4.1-5.3); Red Cell Distribution Width 14.9 % (12.1-15.1); White Blood Count 14.7 10^3/uL (4.0-10.0)
[2022-10-11 04:48] LABS: Alanine Aminotransferase 12 U/L (0-33); Albumin Level 3.3 g/dL (3.5-5.2); Alkaline Phosphatase 71 U/L (35-105); Blood Urea Nitrogen 47 mg/dL (8-23); Carbon Dioxide 20 mmol/L (22-29); Chloride 103 mmol/L (98-107); Globulin 2.9 g/dL (1.3-4.6); Glomerular Filtration Rate 49.1 mL/min (90-130); Glucose 191 mg/dL (65-115); Osmolality Calculated 297 mOsm/kg (285-295); Sodium 135 mmol/L (136-145); Total Bilirubin 0.2 mg/dL (0.15-1.2); Total Protein 6.2 g/dL (6.6-8.7)
[2022-10-11 04:49] LABS: Anion Gap 16.8 (5-19); Aspartate Amino Transferase 36 U/L (0-32); Potassium 4.8 mmol/L (3.5-5.1)
[2022-10-11] MEDS: ceFAZolin 1,000 MG in sodium chloride 0.9% (plus) 50 ML 100 MG IV (05:47)
--- NOTE | 2022-10-11 07:55 | PM.PN ---
Subjective Subjective: POD1 Patient somnolent in no apparent distress. Follows commands. Vitals/I&O/Wt Last Vital Signs Temp 97.2 F L 10/11/22 04:00 Pulse 77 10/11/22 07:35 Resp 17 10/11/22 04:00 BP 96/58 10/11/22 04:00 Pulse Ox 88 L 10/11/22 04:00 O2 Del Method 10/11/22 04:00 O2 Flow Rate 1 10/10/22 20:00 10/10/22 10/11/22 10/11/22 22:59 06:59 14:59 Intake Total 990.75 / 1990.75 540 / 2530.75 Output Total 400 / 750 100 / 850 Balance 590.75 / 1240.75 440 / 1680.75 Weight last 48 hrs Weight 96 lb Physical Exam Narrative: Patient is alert, somnolent. Left Hip incision is healing nicely. There is no signs of erythema or drainage no signs of infection. Good motor strength throughout both lower extremities. Fires in all motor groups. Skin is clear warm, feet are warm with good cap refill in all digits. Normal sensation to light touch. Calves are supple, no medial thigh tenderness, negative Homans' sign. No palpable edema peripherally. Urinary Catheter Management: Hinson: Cath Placed During This Visit: yes Reason for Continuing Indwelling Catheter: Perioperative Use in Selected Surgeries Urinary Catheter Date of Insertion: 10/09/22 Urinary Catheter Time of Insertion: 17:23 Data 10/11/22 03:33 10/11/22 03:33 Micro: Microbiology 10/09/22 17:40 Blood Culture - Preliminary Blood NEGATIVE TO DATE 10/09/22 17:45 Blood Culture - Preliminary Blood NEGATIVE TO DATE A&P Assessment and plan (1) Intertrochanteric fracture of left hip: Patient resting comfortably. Physical therapy to work with mobilization. Continue incentive spirometer for pulmonary toilet. Defer to medical team for medical management. Attestations Medical Necessity Statement*: Defer to medical team Coding Level of Care Code Acute Code for [facility] Diagnoses Intertrochanteric fracture of left hip S72.142A
[2022-10-11] MEDS: lidocaine 5% Patch 1 PATCH TOPICAL ×2 (08:46→20:46)
[2022-10-11] MEDS: HYDROcodone-acetaminophen 5-325 mg Tablet 1 TAB PO ×2 (08:47→20:42)
[2022-10-11] MEDS: lanolin oint 7 gm 1 APPLIC TOPICAL (09:32)
--- NOTE | 2022-10-11 11:48 | P.PN_ITS ---
Subjective Subjective: POD1 Pt seen this AM Initially appeared lethargic; however after a couple minutes she woke up. Stated medication was somewhat helpful for calming her nerves. Worked with PT this AM, stated it went very well but now is in discomfort. Overnight pt required haldol IM for agitation and some visual hallucinations. pt states she remembers last evening and was confusing a dream with reality. knows her cats where not in the room and are not currently in the room . Continues to have significant anxiety and a poor living situation. Denies wanting treatment for her TIMA. Medications: Reviewed: Yes Vitals/I&O/Wt Last Vital Signs Temp 97.5 F L 10/11/22 08:00 Pulse 85 10/11/22 08:00 Resp 18 10/11/22 08:00 BP 102/65 10/11/22 08:00 Pulse Ox 97 10/11/22 08:00 O2 Del Method 10/11/22 08:00 O2 Flow Rate 1 10/10/22 20:00 10/10/22 10/11/22 10/11/22 22:59 06:59 14:59 Intake Total 990.75 / 1990.75 540 / 2530.75 120 / 120 Output Total 400 / 750 100 / 850 Balance 590.75 / 1240.75 440 / 1680.75 120 / 120 Weight last 48 hrs Weight 96 lb Physical Exam Narrative: General: AOx3, anxious, very thin and frail psych: appropriate mood and affect. anxious Head: atraumatic, normocephalic, no mass/lesions Eyes: conjunctiva clear w/o exudate or hemorrhage. non-icteric, EOM intact, PERRLA. no signs of nystagmus Oropharynx: poor dentition, pink moist mucosa, Neck: FROM, no lymphadenopathy, no tracheal deviation, non tender, thyroid gland normal w/o mass. supple Chest: atraumatic, symmetrical CVD: RRR, normal S1 and S2, no M/R/G. 2+ pulse x 4 extremities, no JVD, no carotid bruit. Lungs: clear lung sounds in all zamora, no rhonchi, wheezing, rales. Abdomen: NT, ND, soft, NABS. No hepatosplenomegaly, no mass. umbilicus midline w/o herniation : chaudhry in place Rectal: not done on todays examination Spine: no visible deformities, FROM, 5/5 strength, ttp lumbar spine (chronic) Extremities: FROM and 5/5 strength in BUE and LLE. -R hip: limited ROM, bandage clean and w/o bleeding. -RLE: able to wiggle toes and move foot. NVI Neuro: CNII-XII grossly intact. No atrophy, weakness, tremors or clonus.? 2+ DTR, no sensory abnormalities. Skin:? no rash, vesicles, lesions. Urinary Catheter Management: Chaudhry: Cath Placed During This Visit: yes Reason for Continuing Indwelling Catheter: Perioperative Use in Selected Surgeries Urinary Catheter Date of Insertion: 10/09/22 Urinary Catheter Time of Insertion: 17:23 Data 10/11/22 03:33 10/11/22 03:33 Micro: Microbiology 10/09/22 17:40 Blood Culture - Preliminary Blood NEGATIVE TO DATE 10/09/22 17:45 Blood Culture - Preliminary Blood NEGATIVE TO DATE A&P Assessment and plan (1) Hip fracture: fracture s/p mechainical fall POD 1 R I fracture requiring nail. seen by Ortho HADOOP APPLICATION DEVELOPER this AM to start PT today for mobilization continue incentive spirometer lovenox (2) Anxiety: haldol PRN Hx of undiagnosed TIMA. does not wish for medical management at this time. will re-eval in AM Psych consulted (3) Intravascular volume depletion: tolerating diet contine PO fluids (4) Leukocytosis: improvement today (5) Macrocytic anemia: 11.3 to 8.7 this AM will monitor hgb likely post operative bleeding in hip Plan concern for underlying TIMA. Psychosis unlikely given discussion and Hx. Will need SNF and physical therapy not ready for home psych consult for psychosis Full code Attestations Medical Necessity Statement*: will require hospitalization for hip fracture post-op care and SNF placement Coding Level of Care Code 33370 Diagnoses Hip fracture S72.009A Anxiety F41.9 Intravascular volume depletion E86.1 Leukocytosis D72.829 Macrocytic anemia D53.9
[2022-10-11] MEDS: pantoprazole 40 mg SDV IVP (17:39)
[2022-10-11] MEDS: enoxaparin 40 mg/0.4 mL Syringe SUBCUT (17:39)
[2022-10-11] MEDS: zolpidem 5 mg Tablet PO (20:42)
--- NOTE | 2022-10-11 22:15 | W.PM.PSYCONS ---
Providers/Reason for Consult Consulting Physican/Specialty*: Robinson Valenzuela MD/Psychiatry Reason for Consult*: anxiety Attending Physician: Jevon Burgess MD Psych Consult HPI History of Present Illness Lily Davies is a 72 year old female admitted after a right hip fracture from an accident. Patient had reported that she has had a history panic attacks with Associated chest pain shortness of breath and feelings as if she were going to . She reports that she has chronic problems with controlling her worry. She reports at times having crippling anxiety that has been worse over the past few years. She reports sometimes being unable to control her worry and reports having difficulties with falling asleep. She reports at times having muscle tension and states that she can often struggle with sugar lying down at night. She reports some difficulty with concentration. She reports no psychotic symptoms. She reports no past history or current history of depression. She denies having any thoughts of hurting herself or others. She reports adequate energy and reports no change in motivation. She had reported desire to treat her anxiety with natural remedies. She had acknowledged having extreme anxiety prior to being placed under Anesthesia and stated that she was hearing voices shortly after receiving anesthesia but reports no after effects today. Psychiatric history: She has no inpatient or outpatient psychiatric treatment. She is not receiving psychotherapy in the past either. Medical history/surgical history :see below-hip surgery, macrocytic anemia Current psychiatric medications: ambien 5mg at night Family psychiatric hx: none Legal hx: none hx: none Social history: Patient reports that she lives with her partner in [facility] on [address] acres. 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 She reports that she chronically and [facility] and was raised by her biological parents. She reports having 1 sibling. She reports having graduated high school and did not attend college. 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 She reports that her son was killed in [place] in 2021 and she reports increased anxiety since that time. She denies any drug or alcohol use. She reports 2 previous marriages and states that she is currently . Meds Home Medications and Allergies Home Medications Medication Instructions Recorded Confirmed Last Taken Type naproxen 500 mg tablet 500 mg PO DAILY PRN Pain 10/09/22 10/09/22 Unknown History sulindac 200 mg tablet 100 mg PO BID 10/09/22 10/09/22 Unknown History zolpidem 10 mg tablet (Ambien) 5 mg PO BEDTIME 10/09/22 10/09/22 Unknown History Allergies Allergy/AdvReac Type Severity Reaction Status Date / Time No Known Allergies Allergy Verified 10/10/22 11:26 Current Medications Current Medications Generic Name Dose Route Start Last Admin Trade Name Freq PRN Reason Stop Dose Admin Acetaminophen 650 mg 10/09/22 16:46 10/09/22 23:50 Acetaminophen 325 Mg Tablet PO 650 mg Q6H PRN Administration Mild/Mod Pain Or Temp >/= 101 Hydrocodone Bitart/Acetaminophen 1 tab 10/10/22 01:11 10/11/22 20:42 Hydrocodone-Acetaminophen 5-325 Mg Tablet PO 1 tab Q6H PRN Administration MODERATE PAIN Enoxaparin Sodium 40 mg 10/10/22 18:00 10/11/22 17:39 Enoxaparin 40 Mg/0.4 Ml Syringe SUBCUT 40 mg Q24H ISHAN Administration Lanolin 1 applic 10/11/22 08:41 10/11/22 09:32 Lanolin Oint 7 Gm TOPICAL 1 applic PRN PRN Administration DRYNESS Lidocaine 1 patch 10/09/22 23:45 10/11/22 20:46 Lidocaine 5% Patch TOPICAL 1 patch [id number] ISHAN Administration Morphine Sulfate 2 mg 10/09/22 21:06 10/10/22 16:20 Morphine 4 Mg/Ml Sdv 1 Ml IVP 2 mg Q4H PRN Administration SEVERE PAIN Pantoprazole Sodium 40 mg 10/09/22 17:00 10/11/22 17:39 Pantoprazole 40 Mg Sdv IVP 40 mg Q24H ISHAN Administration Zolpidem Tartrate 5 mg 10/09/22 21:06 10/11/22 20:42 Zolpidem 5 Mg Tablet PO 5 mg BEDTIME ISHAN Administration PFSH NPU PFSH: Medical History No pertinent past medical history Surgical History No pertinent past surgical history Family History Denies family history of CAD (coronary artery disease) Social History Smoking and tobacco status: current every day smoker Alcohol intake: never Household members: significant other Mental Status Exam MSE Comments: Lily is an anxious white female who appeared her stated age. There was no evidence of any abnormal involuntary motor movements tics or tremors appreciated. She was somewhat talkative and open on interview. She appeared anxious but overall in no immediate distress. Her mood was described as okay. Her affect appeared anxious. Her thought process was linear logical and goal-directed. Her thought content showed no evidence of active homicidal or suicidal ideation. There was no clear evidence of delusional thinking. She not appear to be responding to internal stimuli. Attention and concentration appeared adequate. Her insight and judgment appeared fair. Her impulse control appeared fair as well. Vitals/I&O/Wt Last Vital Signs Temp 97.8 F 10/11/22 20:00 Pulse 91 10/11/22 20:00 Resp 17 10/11/22 20:00 BP 120/65 10/11/22 20:00 Pulse Ox 92 10/11/22 20:00 O2 Del Method 10/11/22 19:26 O2 Flow Rate 1 10/10/22 20:00 10/11/22 10/11/22 10/11/22 06:59 14:59 22:59 Intake Total 540 / 2530.75 600 / 600 240 / 840 Output Total 100 / 850 Balance 440 / 1680.75 600 / 600 240 / 840 Weight last 48 hrs Weight 43.545 kg Physical Exam Urinary Catheter Management: Hinson: Cath Placed During This Visit: yes Reason for Continuing Indwelling Catheter: Perioperative Use in Selected Surgeries Urinary Catheter Date of Insertion: 10/09/22 Urinary Catheter Time of Insertion: : Data NPU 10/11/22 03:33 10/11/22 03:33 Micro: Microbiology 10/09/22 17:40 Blood Culture - Preliminary Blood NEGATIVE TO DATE 10/09/22 17:45 Blood Culture - Preliminary Blood NEGATIVE TO DATE Microbiology 10/09/22 17:40 Blood Blood Culture - Preliminary NEGATIVE TO DATE 10/09/22 17:45 Blood Blood Culture - Preliminary NEGATIVE TO DATE A&P Assessment and plan (1) Generalized anxiety disorder: Plan This is a white female with generalized anxiety disorder who appears to be managing her anxiety well enough status post surgery to repair her hip fracture. She is requesting any medications this if necessary at this time. Patient had requested any further follow-up for generalized anxiety disorder and did not feel that psychotherapy was necessary nor was medications. Attestations NPU Medical Necessity Statement*: contact if needed for further follow up. Coding Level of Care Code Acute Code for [facility] Diagnoses Generalized anxiety disorder F41.1
[2022-10-12] VITALS (8 sets, daily range): BP systolic 109–145; BP diastolic 68–84; PULSE 88–97; RESP 17–86; TEMP 36.5–36.8; O2SAT 90–96
[2022-10-12] MEDS: HYDROcodone-acetaminophen 5-325 mg Tablet 1 TAB PO ×3 (02:46→17:45)
[2022-10-12 03:32] LABS: Basophils % 0.2 %; Eosinophils # 0.1 10^3/uL (0.0-0.8); Eosinophils % 0.8 %; Hematocrit 28.3 % (37.0-47.0); Hemoglobin 9.2 g/dL (11.5-15.3); Lymphocytes # 2.9 10^3/uL (0.8-4.8); Lymphocytes % 21.6 %; Mean Corpuscular HGB Conc 32.5 g/dL (30.0-36.0); Mean Corpuscular Hemoglobin 33.9 pg (28.0-34.0); Mean Corpuscular Volume 104.4 fl (81-99); Mean Platelet Volume 10.3 fL (7.4-10.4); Monocytes # 1.4 10^3/uL (0.2-0.9); Monocytes % 10.5 %; Neutrophils # 8.87 10^3/uL (1.8-7.7); Neutrophils % 66.5 %; Nucleated Red Blood Cells % 0 %; Platelet Count 228 10^3/cmm (130-400); Red Blood Count 2.71 10^6/uL (4.1-5.3); Red Cell Distribution Width 14.7 % (12.1-15.1); White Blood Count 13.4 10^3/uL (4.0-10.0)
[2022-10-12 03:59] LABS: Alanine Aminotransferase 13 U/L (0-33); Albumin Level 3.5 g/dL (3.5-5.2); Alkaline Phosphatase 66 U/L (35-105); Anion Gap 10.7 (5-19); Aspartate Amino Transferase 38 U/L (0-32); Blood Urea Nitrogen 35 mg/dL (8-23); Calcium 8.4 mg/dL (8.5-10.5); Carbon Dioxide 28 mmol/L (22-29); Chloride 106 mmol/L (98-107); Globulin 2.9 g/dL (1.3-4.6); Glomerular Filtration Rate 70.9 mL/min (90-130); Glucose 130 mg/dL (65-115); Osmolality Calculated 302 mOsm/kg (285-295); Potassium 3.7 mmol/L (3.5-5.1); Sodium 141 mmol/L (136-145); Total Bilirubin 0.5 mg/dL (0.15-1.2); Total Protein 6.4 g/dL (6.6-8.7)
--- NOTE | 2022-10-12 08:34 | PM.PN ---
Subjective Subjective: POD 2 Patient more alert sitting up in bed following commands. Reports mild right hip pain. Denies any chest pain, shortness of breath, headaches. Vitals/I&O/Wt Last Vital Signs Temp 97.9 F 10/12/22 07:48 Pulse 93 10/12/22 07:48 Resp 18 10/12/22 07:48 BP 122/71 10/12/22 07:48 Pulse Ox 90 10/12/22 07:48 O2 Del Method 10/12/22 07:48 O2 Flow Rate 2 10/12/22 07:48 10/11/22 10/12/22 10/12/22 22:59 06:59 14:59 Intake Total 240 / 840 Output Total 650 / 650 Balance 240 / 840 -650 / 190 Physical Exam Narrative: Patient is alert and orient x3 has good general appearance normal normal affect. Right hip incision is clean and dry. There is no signs of erythema or drainage no signs of infection. Good motor strength throughout both lower extremities. Fires in all motor groups. Skin is clear warm, feet are warm with good cap refill in all digits. Normal sensation to light touch. Calves are supple, no medial thigh tenderness, negative Homans' sign. No palpable edema peripherally. Urinary Catheter Management: Hinson: Cath Placed During This Visit: yes Reason for Continuing Indwelling Catheter: Acute Urinary Retention or Obstruction Urinary Catheter Date of Insertion: 10/09/22 Urinary Catheter Time of Insertion: 17:23 Data 10/12/22 02:45 10/12/22 02:45 A&P Assessment and plan (1) Intertrochanteric fracture of left hip: Physical therapy to work with mobilization. Encouraged incentive spirometry for pulmonary toilet. Lovenox for anticoagulation as well as S CDs. Dressing changed today with Silverlon. Discontinue Hinosn catheter. Defer to medical team for medical management. (2) Generalized anxiety disorder: Attestations Medical Necessity Statement*: Defer to medical team Coding Level of Care Code Acute Code for g Fwd Diagnoses Intertrochanteric fracture of left hip S72.142A Generalized anxiety disorder F41.1
[2022-10-12] MEDS: lidocaine 5% Patch 1 PATCH TOPICAL ×2 (09:17→21:23)
--- NOTE | 2022-10-12 11:01 | P.PN_ITS ---
Subjective Subjective: POD 2 Pt alert, sitting in bed. States she is in discomfort after PT this AM. feeling overall improved. Less anxious during encounter this morning. appears to be getting more comfortable in the hospital setting. After lengthy discussion pt agreable to starting SSRI to help with MDD and Anxiety. Denies any chest pain, shortness of breath, headaches. Medications: Reviewed: Yes Vitals/I&O/Wt Last Vital Signs Temp 97.9 F 10/12/22 07:48 Pulse 93 10/12/22 07:48 Resp 18 10/12/22 07:48 BP 122/71 10/12/22 07:48 Pulse Ox 90 10/12/22 07:48 O2 Del Method 10/12/22 07:48 O2 Flow Rate 2 10/12/22 08:00 10/11/22 10/12/22 10/12/22 22:59 06:59 14:59 Intake Total 240 / 840 0 / 0 Output Total 650 / 650 Balance 240 / 840 -650 / 190 0 / 0 Physical Exam Narrative: General: AOx3, anxious, very thin and frail psych: appropriate mood and affect. anxious Head: atraumatic, normocephalic, no mass/lesions Eyes: conjunctiva clear w/o exudate or hemorrhage. non-icteric, EOM intact, PERRLA. no signs of nystagmus Oropharynx: poor dentition, pink moist mucosa, Neck: FROM, no lymphadenopathy, no tracheal deviation, non tender, thyroid gland normal w/o mass. supple Chest: atraumatic, symmetrical CVD: RRR, normal S1 and S2, no M/R/G. 2+ pulse x 4 extremities, no JVD, no carotid bruit. Lungs: clear lung sounds in all zamora, no rhonchi, wheezing, rales. Abdomen: NT, ND, soft, NABS. No hepatosplenomegaly, no mass. umbilicus midline w/o herniation : chaudhry in place Rectal: not done on todays examination Spine: no visible deformities, FROM, 5/5 strength, ttp lumbar spine (chronic) Extremities: FROM and 5/5 strength in BUE and LLE. -R hip: limited ROM, bandage clean and w/o bleeding. -RLE: able to wiggle toes and move foot. NVI Neuro: CNII-XII grossly intact. No atrophy, weakness, tremors or clonus.? 2+ DTR, no sensory abnormalities. Skin:? no rash, vesicles, lesions. Urinary Catheter Management: Chaudhry: Cath Placed During This Visit: yes Reason for Continuing Indwelling Catheter: Acute Urinary Retention or O bstruction Urinary Catheter Date of Insertion: 10/09/22 Urinary Catheter Time of Insertion: 17:23 Data 10/12/22 02:45 10/12/22 02:45 A&P Assessment and plan (1) Hip fracture: fracture s/p mechainical fall POD 1 R I fracture requiring nail. seen by Ortho [employer] this AM. improved mobilization encourage incentive spirometry to start PT today for mobilization continue incentive spirometer lovenox and SCD's discontinue chaudhry cath (2) Anxiety: Hx of undiagnosed TIMA. pt now agreeable to starting medication Will start Lexapro 10mg qd to help with anxiety and some MDD (3) Intravascular volume depletion: tolerating diet contine PO fluids, BP improving (4) Leukocytosis: improvement today (5) Macrocytic anemia: improving this morning from 8.7 to 9.2 will monitor hgb likely post operative bleeding in hip Plan concern for underlying TIMA and MDD. will start Lexapro with understanding that patient must establish with a PCP upon discharge Will need SNF and physical therapy not ready for home psych consult for psychosis Full code Attestations Medical Necessity Statement*: requires hospitalization for post op care and SNF Coding Level of Care Code 75123 Diagnoses Hip fracture S72.009A Anxiety F41.9 Intravascular volume depletion E86.1 Leukocytosis D72.829 Macrocytic anemia D53.9
[2022-10-12] MEDS: escitalopram 10 mg Tablet PO (13:00)
--- NOTE | 2022-10-12 13:48 | PC.SOCIAL ---
Pg 2 IMM Explained to pt Pg 2 IMM. No questions voiced. Provided pt a copy. Initialed, dated, & timed a copy & placed in chart.
[2022-10-12] MEDS: enoxaparin 40 mg/0.4 mL Syringe SUBCUT (17:18)
[2022-10-12] MEDS: pantoprazole 40 mg SDV IVP (17:18)
[2022-10-12] MEDS: zolpidem 5 mg Tablet PO (21:23)
[2022-10-13] MEDS: HYDROcodone-acetaminophen 5-325 mg Tablet 1 TAB PO ×5 (00:14→23:45)
[2022-10-13 03:54] VITALS: BP 142/85; PULSE 84; RESP 26; TEMP 36.8; O2SAT 98
[2022-10-13 05:36] LABS: Basophils # 0.1 10^3/uL (0.0-0.1); Basophils % 0.5 %; Eosinophils # 0.2 10^3/uL (0.0-0.8); Eosinophils % 1.7 %; Hematocrit 26.7 % (37.0-47.0); Hemoglobin 8.9 g/dL (11.5-15.3); Lymphocytes # 2.4 10^3/uL (0.8-4.8); Lymphocytes % 24.8 %; Mean Corpuscular HGB Conc 33.3 g/dL (30.0-36.0); Mean Corpuscular Volume 105.1 fl (81-99); Mean Platelet Volume 9.7 fL (7.4-10.4); Monocytes # 1.4 10^3/uL (0.2-0.9); Monocytes % 14.1 %; Neutrophils # 5.63 10^3/uL (1.8-7.7); Neutrophils % 58.4 %; Nucleated Red Blood Cells % 0 %; Platelet Count 259 10^3/cmm (130-400); Red Blood Count 2.54 10^6/uL (4.1-5.3); Red Cell Distribution Width 14.8 % (12.1-15.1); White Blood Count 9.6 10^3/uL (4.0-10.0)
[2022-10-13 05:54] LABS: Alanine Aminotransferase 10 U/L (0-33); Albumin Level 3.3 g/dL (3.5-5.2); Alkaline Phosphatase 63 U/L (35-105); Anion Gap 9.1 (5-19); Aspartate Amino Transferase 26 U/L (0-32); Blood Urea Nitrogen 21 mg/dL (8-23); Calcium 8.2 mg/dL (8.5-10.5); Carbon Dioxide 32 mmol/L (22-29); Chloride 105 mmol/L (98-107); Globulin 2.7 g/dL (1.3-4.6); Glucose 123 mg/dL (65-115); Osmolality Calculated 298 mOsm/kg (285-295); Potassium 4.1 mmol/L (3.5-5.1); Sodium 142 mmol/L (136-145); Total Bilirubin 0.7 mg/dL (0.15-1.2)
[2022-10-13 08:00] VITALS: BP 113/75; PULSE 86; RESP 16; RESP 18; TEMP 36.5; O2SAT 92; O2SAT 96
[2022-10-13] MEDS: escitalopram 10 mg Tablet PO (09:43)
[2022-10-13] MEDS: lidocaine 5% Patch 1 PATCH TOPICAL ×2 (09:43→20:20)
[2022-10-13 12:00] VITALS: BP 105/64; PULSE 87; RESP 18; TEMP 36.6; O2SAT 92
[2022-10-13 16:00] VITALS: BP 154/87; PULSE 92; RESP 18; TEMP 36.6; O2SAT 92
--- NOTE | 2022-10-13 17:06 | PM.PN ---
Subjective Subjective: Pain is better controlled today. Patient is doing well on as needed hydrocodone and toradol. Worked with PT Medications: Reviewed: Yes Vitals/I&O/Wt Last Vital Signs Temp 97.9 F 10/13/22 16:00 Pulse 92 10/13/22 16:00 Resp 18 10/13/22 16:00 BP 154/87 10/13/22 16:00 Pulse Ox 92 10/13/22 16:00 O2 Del Method 10/13/22 16:00 O2 Flow Rate 1 10/13/22 08:00 10/13/22 10/13/22 10/13/22 06:59 14:59 22:59 Intake Total 100 / 700 480 / 480 Balance 100 / 50 480 / 480 Physical Exam Narrative: General: No acute distress, AO x3 HEENT: PERRLA, pupils bilaterally equal and reactive, pallors not present Chest: Normal vesicular breath sounds, no added sounds, equal good air entry bilaterally CVS: S1-S2 regular, no murmurs, no tachycardia, no gallops, no rubs Abdomen: Soft, nontender, no organomegaly, bowel sounds present Neuro: No focal deficits, no facial deformity, AO x3, power 5/5 in all limbs Urinary Catheter Management: Hinson: Cath Placed During This Visit: yes, but has since been removed by the nurse Reason for Continuing Indwelling Catheter: Decision to DC Catheter Urinary Catheter Date of Insertion: 10/09/22 Urinary Catheter Time of Insertion: 17:23 Date Urinary Catheter Removed: 10/12/22 Time Urinary Catheter Discontinued: 12:10 Data 10/13/22 05:13 10/13/22 05:13 A&P Assessment and plan (1) Hip fracture: fracture s/p mechainical fall POD 1 R I fracture requiring nail. encourage incentive spirometry continue PT today for mobilization continue incentive spirometer lovenox and SCD's (2) Anxiety: Hx of undiagnosed TIAM. started on Lexapro 10mg qd to help with anxiety and some MDD doing better (3) Intravascular volume depletion: tolerating diet contine PO fluids, BP improving (4) Leukocytosis: improvement today (5) Macrocytic anemia: stable Plan Dispo: approptiate dispo planning ongoing, will likely benefit from ongoing skilled therapy Full code Attestations Medical Necessity Statement*: approprtiate disposition planning Coding Level of Care Code Acute Code for Chg Fwd Diagnoses Hip fracture S72.009A Anxiety F41.9 Intravascular volume depletion E86.1 Leukocytosis D72.829 Macrocytic anemia D53.9
[2022-10-13] MEDS: pantoprazole 40 mg SDV IVP (17:42)
[2022-10-13 20:00] VITALS: BP 154/77; PULSE 87; RESP 17; TEMP 36.9; O2SAT 93
[2022-10-13] MEDS: zolpidem 5 mg Tablet PO (20:19)
[2022-10-13 23:37] VITALS: BP 177/69; PULSE 117; RESP 18; TEMP 36.6; O2SAT 91
[2022-10-14 00:20] VITALS: BP 151/90; PULSE 92; RESP 17; O2SAT 92
[2022-10-14 03:46] VITALS: BP 151/89; PULSE 90; RESP 16; TEMP 36.8; O2SAT 93
--- NOTE | 2022-10-14 04:35 | PC.NURSE ---
during rounding pt has had eyes closed, no s/s of distress, on occasion pt wakes up when chaudhry bag is being emptied, pt then c/o severe pain rating pain at 4, pain meds given.
[2022-10-14] MEDS: HYDROcodone-acetaminophen 5-325 mg Tablet 1 TAB PO ×2 (06:29→14:54)
[2022-10-14 08:00] VITALS: BP 150/82; PULSE 90; RESP 15; TEMP 36.8; O2SAT 93
[2022-10-14] MEDS: escitalopram 10 mg Tablet PO (08:08)
[2022-10-14] MEDS: lidocaine 5% Patch 1 PATCH TOPICAL (08:08)
[2022-10-14 11:58] VITALS: BP 149/88; PULSE 93; TEMP 36.7; O2SAT 94
--- NOTE | 2022-10-14 13:30 | P.DS_ITS ---
Discharge Providers Date of Admission: 10/09/22 18:23 Date of Discharge: October 15, 2022 Attending Provider at Admission: Rachelle Jordan MD Attending Provider at Discharge: Honey Yanes MD Diagnoses at Discharge Discharge Diagnosis (1) Hip fracture: Status: Acute (2) Anxiety: Status: Acute (3) Intravascular volume depletion: Status: Acute (4) Leukocytosis: Status: Acute (5) Macrocytic anemia: Status: Acute Reason for Visit Reason for Visit: FALL/ POSSIBLE BROKEN HIP Hospital Course Hospital Course Lily Davies is a 72 year old female who sustained a fall when she tripped over over her cats and dogs at home.? She is denying chest pain, syncope, seizure- like activity.she has been diagnosed with right hip fracture. She underwent Right hip nail for IT fracture. Post op course was notable for significant anxiety for which patient has been started on Lexapro in addition to her home anxiolytics. She worked with PT. Pain is adequately controlled on prn opaites. She is being discharged to continue skilled therapy at SNF. She is currently stable. Physical Exam Narrative: General: No acute distress, AO x3 HEENT: PERRLA, pupils bilaterally equal and reactive, pallors not present Chest: Normal vesicular breath sounds, no added sounds, equal good air entry bilaterally CVS: S1-S2 regular, no murmurs, no tachycardia, no gallops, no rubs Abdomen: Soft, nontender, no organomegaly, bowel sounds present Neuro: No focal deficits, no facial deformity, AO x3, power 5/5 in all limbs Urinary Catheter Management: Hinson: Cath Placed During This Visit: yes, but has since been removed by the nurse Reason for Continuing Indwelling Catheter: Decision to DC Catheter Urinary Catheter Date of Insertion: 10/09/22 Urinary Catheter Time of Insertion: 17: Date Urinary Catheter Removed: 10/12/22 Time Urinary Catheter Discontinued: 12:10 Discharge Data Studies Completed and Pending Completed Studies During Hospitalization Category Date Time Status CT hip RT wo con* [id number] Urgent Cat Scan 10/10/22 06:25 Completed XR chest 1V portable [id number] Stat Exams 10/09/22 16:19 Completed XR hip RT 2-3V wo/w pel* [id number] Routine Exams 10/10/22 Completed XR hip RT 2-3V wo/w pel* [id number] Stat Exams 10/09/22 15:41 Completed Radiology Impressions Chest X-Ray 10/09/22 16:19 IMPRESSION: 1. No acute chest abnormality identified. 2. Severe emphysema. 3. Suboptimal image of the lungs. Technical limitations. Hip/Pelvis X-Ray 10/10/22 00:00 IMPRESSION: Fracture with fixation without abnormality. Hip CT 10/10/22 06:25 IMPRESSION: 1. Comminuted impacted RIGHT femoral neck fracture which extends subtrochanteric. 2. Avulsion of the lesser and greater trochanters. Laboratory Results WBC 9.6 10^3/uL (4.0-10.0) 10/13/22 05:13 RBC 2.54 10^6/uL (4.1-5.3) L 10/13/22 05:13 Hgb 8.9 g/dL (11.5-15.3) L 10/13/22 05:13 Hct 26.7 % (37.0-47.0) L 10/13/22 05:13 MCV 105.1 fl (81-99) H 10/13/22 05:13 MCH 35.0 pg (28.0-34.0) H 10/13/22 05:13 MCHC 33.3 g/dL (30.0-36.0) 10/13/22 05:13 RDW 14.8 % (12.1-15.1) 10/13/22 05:13 Plt Count 259 10^3/cmm (130-400) 10/13/22 05:13 MPV 9.7 fL (7.4-10.4) 10/13/22 05:13 Neut % (Auto) 58.4 % 10/13/22 05:13 Lymph % (Auto) 24.8 % 10/13/22 05:13 Wise % (Auto) 14.1 % 10/13/22 05:13 Eos % (Auto) 1.7 % 10/13/22 05:13 Baso % (Auto) 0.5 % 10/13/22 05:13 Neut # (Auto) 5.63 10^3/uL (1.8-7.7) 10/13/22 05:13 Lymph # (Auto) 2.4 10^3/uL (0.8-4.8) 10/13/22 05:13 Wise # (Auto) 1.4 10^3/uL (0.2-0.9) H 10/13/22 05:13 Eos # (Auto) 0.2 10^3/uL (0.0-0.8) 10/13/22 05:13 Baso # (Auto) 0.1 10^3/uL (0.0-0.1) 10/13/22 05:13 Nucleated RBC % (auto) 0 % 10/13/22 05:13 Nucleated RBCs # 0.0 /100WBC 10/13/22 05:13 PT 13.30 SECONDS (12.1-14.9) 10/09/22 16:37 INR 0.98 (0.8-1.2) 10/09/22 16:37 APTT 23.7 SECONDS (23.9-36.7) L 10/09/22 16:37 Sodium 142 mmol/L (136-145) 10/13/22 05:13 Potassium 4.1 mmol/L (3.5-5.1) 10/13/22 05:13 Chloride 105 mmol/L (98-107) 10/13/22 05:13 Carbon Dioxide 32 mmol/L (22-29) H 10/13/22 05:13 Anion Gap 9.1 (5-19) 10/13/22 05:13 BUN 21 mg/dL (8-23) 10/13/22 05:13 Creatinine 0.5 mg/dL (0.5-0.9) 10/13/22 05:13 GFR Calculation 122.0 mL/min (90-130) 10/13/22 05:13 Glucose 123 mg/dL (65-115) H 10/13/22 05:13 Calculated Osmolality 298 mOsm/kg (285-295) H 10/13/22 05:13 Lactic Acid 1.8 mmol/L (0.5-2.2) 10/09/22 17:45 Calcium 8.2 mg/dL (8.5-10.5) L 10/13/22 05:13 Magnesium 1.8 mg/dL (1.7-2.3) 10/10/22 06:06 Total Bilirubin 0.7 mg/dL (0.15-1.2) 10/13/22 05:13 AST 26 U/L (0-32) 10/13/22 05:13 ALT 10 U/L (0-33) 10/13/22 05:13 Alkaline Phosphatase 63 U/L (35-105) 10/13/22 05:13 Creatine Kinase 982 U/L (26-192) H* 10/09/22 16:37 Total Protein 6.0 g/dL (6.6-8.7) L 10/13/22 05:13 Albumin 3.3 g/dL (3.5-5.2) L 10/13/22 05:13 Globulin 2.7 g/dL (1.3-4.6) 10/13/22 05:13 Procalcitonin 0.23 ng/mL (0-0.5) 10/09/22 17:45 Urine Color Yellow (Yellow) 10/09/22 17:11 Urine Appearance Clear (CLEAR) 10/09/22 17:11 Urine pH 5 (5-7) 10/09/22 17:11 Ur Specific Seymour 1.020 (1.005-1.030) 10/09/22 17:11 Urine Protein Trace (Negative) 10/09/22 17:11 Urine Glucose (UA) Norm (Normal) 10/09/22 17:11 Urine Ketones 1+ (Negative) H 10/09/22 17:11 Urine Blood Neg (Negative) 10/09/22 17:11 Urine Nitrate Negative (Negative) 10/09/22 17:11 Urine Bilirubin Neg (Negative) 10/09/22 17:11 Urine Urobilinogen Neg mg/dL (Negative) 10/09/22 17:11 Ur Leukocyte Esterase Negative (Negative) 10/09/22 17:11 Urine RBC None /hpf (0-2) 10/09/22 17:11 Urine WBC None /hpf (0-5) 10/09/22 17:11 Ur Squamous Epith Cells None /hpf (0-5) 10/09/22 17:11 Amorphous Sediment Not Reportable 10/09/22 17:11 Urine Bacteria Trace /hpf (NONE) 10/09/22 17:11 SARS-CoV-2 Ag (Rapid) negative (Negative) 10/14/22 13:18 Vitals Last Vital Signs Temp 98.1 F 10/14/22 11:58 Pulse 93 10/14/22 11:58 Resp 15 10/14/22 08:00 BP 149/88 10/14/22 11:58 Pulse Ox 94 10/14/22 11:58 O2 Del Method 10/14/22 03:46 O2 Flow Rate 1 10/13/22 08:00 Discharge Plan Discharge Patient Disposition: er [facility] Condition: Stable Prescriptions: New lidocaine 5 % Adhesive Patch,Medicated 1 patch topical [id number] 30 Days Qty: 30 0RF escitalopram oxalate 10 mg Tablet 10 mg PO DAILY 30 Days Qty: 30 0RF hydrocodone-acetaminophen 5-325 mg tablet 1 - 2 tab PO .Q4-6H Qty: 40 0RF Continued Ambien 10 mg Tablet 5 mg PO BEDTIME naproxen 500 mg Tablet 500 mg PO DAILY PRN (Reason: Pain) Discontinued sulindac 200 mg Tablet 100 mg PO BID Discharge Orders: Discharge Order (Routine); Ordered 10/14/22 Ordered By: Honey Yanes Referrals: [facility] [Outside] Emiliano Caldwell DO [Physician] - 10/28/22 10:00 am (APPOINTMENT WITH [facility]) Discharge Diet: Advance as tolerated Discharge Activity: Limit activity as instructed Activity Restrictions/Additional Instructions: You are being discharged from the hospital today during which time you have been under the care of Dr Caldwell. You had a Left hip fracture. You were treated for this injury with IM nail. You may resume you normal diet (including any special diets as directed by your primary doctor) as well as your home medications. You should follow up with you primary doctor if you have any questions regarding medication you took prior to your stay in the hospital. You may take your pain medication as prescribed. After the first few days, take your pain medication as needed. Do not drive or drink alcohol while taking your pain medication. Your injury may increase your risk of developing a blood clot,or DVT, in your arm or leg. This could potentially dislodge and travel to your lungs and become a life threatening condition called apulmonary embolus,or PE. You have been prescribed eliquis to be taken to prevent this. Frequent movement of the legs will also help prevent this from occurring. If you develop any new or worsening cough, chestpain, bloody sputum or shortness of breath, call 911 or go to the EmergencyRoom. Always keep your surgical incision/dressing clean and dry. If you experience increasing pain at your incision site, redness, swelling, increasing discharge, foul odors, or fevers (greater than 100.4), night sweats or chills you should call the office at the above number. If you feel this is an emergency you should be evaluated in the Emergency Department of a nearby hospital. Orthopedic Patient Instructions Summary: Weight Bearing: WBAT Activity: as tolerated. Diet: regular. Wound Care: Keep dressing clean and dry. Change as needed Anticoagulation: Lovenox Pain Medication: Take only as needed. Ice, rest and elevation will be of great benefit. Please plan to follow-up wldaryn Caldwell in 2 weeks. You will need to call the clinic [phone] to schedule. Do not hesitate to call the office with any questions or concerns. Discharge Attestations Time Spent in Discharge Care*: greater than 30 min Quality Metrics Clinical Quality Measures [ No reported AMI, CVA or VTE this stay] Coding Level of Care Code Acute Code for g Fwd Diagnoses Hip fracture S72.009A Anxiety F41.9 Intravascular volume depletion E86.1 Leukocytosis D72.829 Macrocytic anemia D53.9
--- NOTE | 2022-10-14 14:22 | PC.NURSE ---
Report given to Zenaida at [place] via phone.
[2022-10-14 14:23] LABS: SARS Covid-2 Antigen negative (Negative)
--- NOTE | 2022-10-14 14:23 | PC.SOCIAL ---
IMM Update pg 2 of IMM updated and reviewed w/ patient. Copy provided and copy in chart dated and initialed.
[2022-10-14] MEDS: saline nasal spray 44mL Btl 1 SPRAY NASAL (14:30)
== END 2022-10-14 15:31 | disposition skilled nursing facility (03) | DRG 482 ==
LOC: ER 17:47 → MEDSURG 18:26
PROVIDERS: Family Medicine; Orthopaedic Surgery; Admitting Provider Internal Medicine; Emergency Provider Family Medicine; Visit Provider Student in an Organized Health Care Education/Training Program
PROC: 0QH636Z Insertion of Intramedullary Internal Fixation Device into Right Upper Femur, Percutaneous Approach (ICD-10-PCS; CPT 27245; principal; 2022-10-10 12:25)
DX: S72.111A Displaced fracture of greater trochanter of right femur, initial encounter for closed fracture (principal); W18.31XA Fall on same level due to stepping on an object, initial encounter; F41.1 Generalized anxiety disorder; E86.0 Dehydration; F17.200 Nicotine dependence, unspecified, uncomplicated; D53.9 Nutritional anemia, unspecified; F32.9 Major depressive disorder, single episode, unspecified
CPT/HCPCS: 36415; 51702; 71045; 73501; 73502; 73700; 76000; 80053; 81001; 82550; 83605; 83735; 84145; 85025; 85610; 85730; 87040; 87426; 93005; 94664; 96372; 96374; 96375; 97110; 97116; 97161; 97166; 97530; 97535; 99285; C1713; C9113; J0690; J1100; J1170; J1644; J1650; J2270; J2405; J2704; J3010; J7030; P9045

== ENCOUNTER → 2022-11-11 15:36 | Outpatient (BNVA) | payer MEDICARE, SELFPAY | PROVIDERS: Visit Provider Physician Assistant | DX: S72.142A Displaced intertrochanteric fracture of left femur, initial encounter for closed fracture (principal); X58.XXXA Exposure to other specified factors, initial encounter | CPT/HCPCS: 73502; 99024 ==